=== PATIENT | male | born 1930 | race Caucasian/White ===

== ENCOUNTER 2016-12-03 17:24 | Inpatient (IN) | payer MEDICARE, BC ==
[~2016-12-03] VITALS: Ht 177.8 cm; Wt 79.1 kg
--- NOTE | ~2016-12-03 | HP ---
PATIENT'S NAME: TRINH JAIMES [facility] AGE: 86 Y [address] ROOM: [place] [address] LOCATION: GPCU ADMIT DATE: 12/03/2016 History & Physical DISCHARGE DATE: FAMILY PHYSICIAN: PHYSICIAN, UNKNOWN ATTENDING PHYSICIAN: ANTHONY OWEN DATE OF SERVICE: CHIEF COMPLAINT: NSTEMI. HISTORY OF PRESENT ILLNESS: This is an 86-year-old male with history of coronary artery disease, paroxysmal atrial fibrillation, on Coumadin, sick sinus syndrome, status post permanent pacemaker implant, hypertension, who was seen here for evaluation of chest pain. The patient reports that he woke up yesterday morning at around 6 a.m. and shortly after getting up had severe sudden onset chest pain, described as sharp with radiation to the left arm and jaw with associated nausea and diaphoresis. The patient states that the pain last for about 2 to 3 hours but subsided and did not make much of it and felt better the rest of the day. Then today, the patient reports that same symptoms recurred that is when he decided to come to the emergency room in [place], [place]. Upon evaluation, the patient was found to have elevated troponin and typical chest pain symptoms and subsequently transferred here for further workup. The patient during my evaluation today is lying in bed comfortably, chest pain free, and denies any shortness of breath, dizziness, lightheadedness, and he had been chest pain free for the past several hours. He does mention chest pain is exacerbated by exertion and relieved with rest. Denies cough, dysuria, frequency urination, fever, or chills. PAST MEDICAL HISTORY: 1. Paroxysmal atrial fibrillation. 2. Sick sinus syndrome, status post permanent pacemaker implant. 3. Hypertension. 4. History of CVA. FAMILY HISTORY: The patient does not report any history of heart disease, hypertension, diabetes, cancer in any of his family members. SOCIAL HISTORY: The patient denies any use of tobacco products, smoking, alcohol, or drug. REVIEW OF SYSTEMS: Complete review of systems was conducted covering all systems and were all PATIENT'S NAME: TRINH JAIMES [facility] AGE: 86 Y [address] ROOM: [place] [address] LOCATION: GPCU ADMIT DATE: 12/03/2016 History & Physical DISCHARGE DATE: FAMILY PHYSICIAN: PHYSICIAN, UNKNOWN ATTENDING PHYSICIAN: ANTHONY OWEN negative except as described in the HPI. PHYSICAL EXAMINATION: VITAL SIGNS: Reviewed. The patient is afebrile, and all other vital signs are stable. GENERAL: The patient is awake, alert, and oriented x3, in no acute distress. HEENT: The patient has moist mucous membranes. No scleral icterus or conjunctival pallor noted. CHEST: Clear to auscultation bilaterally. HEART: S1, S2, regular rate and rhythm. ABDOMEN: Soft, nontender, nondistended with positive bowel sounds. NEUROLOGIC: Grossly nonfocal. MUSCULOSKELETAL: No joint swelling, redness, effusion noted. SKIN: The patient has diffuse bruising on upper and lower extremities, fairly small in size. SIGNIFICANT LABORATORIES: Troponin last time checked was 2.1, creatinine 1.3. ASSESSMENT AND PLAN: 1. Non-ST elevation myocardial infarction. The patient has known coronary artery disease, last cath was in 2014, has typical presentation now, needs to be risk stratified and Dr. Cline is to evaluate him. The patient's INR is 2.3 while on Coumadin. We will hold Coumadin in anticipation of cardiac cath, however, we will just watch INR for now. The patient is chest pain free at the moment. We will trend his troponins and get a baseline EKG again as well. 2. Paroxysmal atrial fibrillation. The patient is on sotalol and Coumadin at home. He is rate controlled. INR is 2.3 today. 3. Sick sinus syndrome, status post permanent pacemaker implant. 4. Hypertension. We will continue his home medications. 5. Hyperlipidemia. We will continue his statin therapy. 6. Deep venous thrombosis, on Coumadin with therapeutic INR. MD AMI GIANG/shaylee /[id number] D: T: 430 HISTORY & PHYSICAL
--- NOTE | ~2016-12-03 | DS ---
PATIENT'S NAME: TRINH JAIMES [facility] AGE: 86 Y [address] ROOM: [address] [place], [place] [address] LOCATION: GPCU ADMIT DATE: 12/03/2016 Discharge Summary DISCHARGE DATE: 12/06/2016 FAMILY PHYSICIAN: Michael Watkins MD ATTENDING PHYSICIAN: Suni Harper PRINCIPAL DIAGNOSES: 1. Non-ST elevation myocardial infarction, status post drug-eluting stent to the RCA. 2. Coronary artery disease with occluded LAD per left heart catheterization in 1995. 3. Sick sinus syndrome, post dual-chamber pacemaker in 2013. 4. 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 5. Essential hypertension. 6. Benign prostatic hyperplasia. 7. Hypothyroidism. 8. History of shingles. 9. History of skin cancer in the face. HOSPITAL COURSE: An 86-year-old gentleman was transferred here from an outside facility with the chest pain. EKG was done, which showed paced rhythm. His enzymes were significantly elevated with the highest point was 21. He was started on nitro drip, and he was already on therapeutic oral anticoagulation. Echocardiography was done, which showed hypokinesis of the mid anterolateral, mid anterior, mid inferolateral, the base of the inferolateral, apical, lateral, apical cap segments. Ejection fraction was 45%. Mild septal left ventricular hypertrophy. Diastolic reveals grade 1 dysfunction. Mildly dilated right ventricle. Mild aortic regurgitation. He was taken to the laboratory chemical assistant by the Cardiology, and a drug- eluting stent was placed in the RCA per verbal report. He did well postprocedurally, and he was started on his all of his home medications. He was found to have some elevated AST levels and his dose of Lipitor was decreased to 10 mg on discharge. He was started on dual-antiplatelet. DISCHARGE MEDICATIONS: 1. Aspirin 81 mg p.o. every day. 2. Atorvastatin 10 mg p.o. every day. 3. Sotalol 160 mg p.o. twice daily. 4. Tamsulosin 0.4 mg p.o. every day. 5. [place] Thyroid 60 mg p.o. every day. 6. Coumadin per home dose. 7. Maxzide 75 one tablet p.o. every day. 8. Brilinta 90 mg p.o. twice daily. It was discussed with cardiology regarding beta carmel, and because of the PATIENT'S NAME: TRINH JAIMES [facility] AGE: 86 Y [address] ROOM: [id number] [place], [place] [address] LOCATION: GPCU ADMIT DATE: 12/03/2016 Discharge Summary DISCHARGE DATE: 12/06/2016 FAMILY PHYSICIAN: Michael Watkins MD ATTENDING PHYSICIAN: Suni Harper sorick did recommend to start the patient on beta carmel. He did have some GLORIA in the hospital with the creatinine level arising from 1.2 to 1.4, but postprocedurally, he was given some IV fluids and that resolved. PROGRESS NOTE ON THE DAY OF DISCHARGE SUBJECTIVE: No chest pain, no shortness of breath. He walked around in the hallway without any difficulty. OBJECTIVE: VITAL SIGNS: Blood pressure 97/63, 68, 98.0, 16. GENERAL: No acute distress. Alert and oriented x3. HEAD: Atraumatic, normocephalic. EYES: Anicteric. No pallor. CARDIOVASCULAR: S1, S2. No murmur, gallops, or rubs. LUNGS: Clear to auscultation bilaterally. ABDOMEN: Soft, nontender, and nondistended. Bowel sounds present. EXTREMITIES: No clubbing, cyanosis, or edema. LABORATORY DATA: Notable lab work included white of 11, hemoglobin of 12, platelets 156. Creatinine on discharge was 1.2, potassium of 3.6, which was replaced. Cholesterol level was 166, triglycerides 196, HDL 40, LDL of 88. ACTIVITY: As tolerated. DIET: Cardiac diet. FOLLOWUP: Follow up with Dr. Cline in 1 month and follow up with Dr. Cristina in [place] in 2 weeks. MD LAUREL MCELROY/shaylee /[id number] d: 12/07/16 0018 t: 12/28/16 1009, DISCHARGE SUMMARY
--- NOTE | ~2016-12-03 | CON ---
PATIENT'S NAME: TRINH JAIMES [facility] AGE: 86 Y [address] ROOM: [address] [address] LOCATION: [facility] ADMIT DATE: 12/03/2016 Consultation DISCHARGE DATE: FAMILY PHYSICIAN: Michael Watkins MD ATTENDING PHYSICIAN: ANTHONY HARPER DATE OF CONSULTATION: 12/04/2016 REFERRING PHYSICIAN: Tami Arredondo MD CARDIOLOGY CONSULTATION REFERRING PHYSICIAN: Anthony Harper MD FAMILY PHYSICIAN: Tiburcio Wood MD HISTORY OF PRESENT ILLNESS: This is an 86-year-old gentleman well known to Dr. Arredondo with a history of coronary artery disease. He is now being admitted with complaints of chest pain as well as elevated cardiac enzymes. He woke on 12/03/2016 with a severe onset of chest discomfort, described as a sharp pain radiating to his left arm and jaw that was associated with nausea and diaphoresis. The pain lasted about 2 to 3 hours and then he disrested and it went away. He stated the symptoms returned the following day or day of admission, so he went to the [facility]. Upon evaluation, he was found to have an elevated troponin. Therefore, he was transferred to [facility] for further evaluation. Prior to this, he was in his usual state of health and was not experiencing any exertional chest heaviness or tightness. He does carry a history of an occluded LAD that was noted on a heart catheterization in 1995. He has chosen chelation therapy since then but had subsequently stopped doing the chelation for the past year or so. In 2014, he had suffered bilateral pulmonary embolism and had a Green filter placed and has been short of breath, since he had the pulmonary embolism. He is currently on warfarin therapy both for his DVTs as well as a history of paroxysmal atrial fibrillation. PAST MEDICAL HISTORY: 1. Coronary artery disease with occluded LAD per left heart catheterization, 09/22/1995. 2. Sick sinus syndrome, post dual-chamber pacemaker, 2013. 3. History of bilateral pulmonary embolism with IVC placement in 2014. 4. Essential hypertension. 5. BPH. 6. Hypothyroidism. 7. History of shingles. PATIENT'S NAME: TRINH JAIMES [facility] AGE: 86 Y [address] ROOM: [id number] [place], [place] [address] LOCATION: GPCU ADMIT DATE: 12/03/2016 Consultation DISCHARGE DATE: FAMILY PHYSICIAN: Michael Watkins MD ATTENDING PHYSICIAN: ANTHONY HARPER 8. History of skin cancers on his face. PAST SURGICAL HISTORY: 1. He is post tonsillectomy and adenoidectomy. 2. Cholecystectomy. 3. Right and left heart catheterization on 09/22/1995 with attempted PTCI to the LAD, that was failed in [place], [place]. 4. Dual-chamber pacemaker placement on 03/13/2014. 5. IVC filter placement on 10/04/2014. ALLERGIES: NONE TO MEDICATION. HOME MEDICATIONS: 1. Ascorbic acid 500 mg every day. 2. Sotalol 160 mg b.i.d. 3. Tamsulosin 0.4 mg every day. 4. [place] Thyroid 60 mg every day. 5. Maxzide 75, 1 tablet daily. 6. Warfarin 3 mg 2 days a week and 4 mg 5 days a week. FAMILY HISTORY: His father was struck by lightening and had multiple health problems after that. His mother lived to be older age, of heart failure symptoms. SOCIAL HISTORY: He is . He has two daughters. He has never smoked. He does not use alcohol. REVIEW OF SYSTEMS: GENERAL: He denies any fevers, chills, or sweats. HEENT: Head; no history of headaches. Eyes; no blurred vision or double vision. He does wear corrective lenses. Ears; he has hearing aid in the left ear. Nose; no epistaxis or rhinorrhea. Mouth; no gingival bleeding. Throat; denies difficulty with swallowing. PULMONARY: Denies cough or hemoptysis. He does complain of shortness of breath with activity. He has a history of pulmonary embolism. GASTROINTESTINAL: Negative for nausea, vomiting, or diarrhea. No melena or hematochezia. GENITOURINARY: Positive for urgency and nocturia 2 to 3 times at night. He does have a history of BPH. MUSCULOSKELETAL: He complains of generalized arthritis. NEUROLOGIC: Denies TIA or CVA symptomatology. PSYCHIATRIC: No problems with anxiety or depression. PATIENT'S NAME: TRINH JAIMES [facility] AGE: 86 Y [address] ROOM: [id number] [place], [place] [address] [facility] ADMIT DATE: 12/03/2016 Consultation DISCHARGE DATE: FAMILY PHYSICIAN: Michael Watkins MD ATTENDING PHYSICIAN: ANTHONY HARPER PHYSICAL EXAMINATION: VITAL SIGNS: He is 5 feet 10 inches. He weighs 169 pounds. Blood pressure is 124/78, heart rate 66, and respirations are 20. He is afebrile. SKIN: Warm, dry, and pink. GENERAL: He is very cheerful. HEENT: Pupils are equal. NECK: Soft and supple. No lymphadenopathy or thyromegaly. JVD is flat. RESPIRATORY: Lung sounds are clear without evidence of wheezes, rales, or rhonchi. CARDIOVASCULAR: Regular with a normal S1 and S2 with occasional paced beats noted. ABDOMEN: Soft. Bowel sounds are present. EXTREMITIES: No peripheral edema. No clubbing. No cyanosis. Distal pulses are 2+/4. NEUROLOGIC: Cranial nerves 2 through 12 are grossly intact. His gait was not assessed. PSYCHIATRIC: His mood is pleasant and calm. LABORATORY DATA AND IMAGING STUDIES: Cardiac enzymes, troponin I is 16.9 to 21.1; CPK was 352 to 335 to 305. His hemoglobin was 14.5, hematocrit was 43.0, white count was 12.0, and platelets are 191,000. Glucose was 90, BUN 27, creatinine 1.2, sodium 139, potassium 3.8, and magnesium was 2.0. Cholesterol was 260, triglycerides 386, HDL 47, and LDL was 136. His INR at admission was 2.3. UA was normal. ASSESSMENT: 1. [id number]-[id number] myocardial infarction. His EKG is not showing any new changes, but his enzymes are elevated. He is currently on warfarin and it is on hold. We will check an echocardiogram today and catheterization in the morning, once his INR is less than 1.5. The risks and benefits of a left heart catheterization have been explained by Dr. Arredondo. The patient is in agreement and willing to proceed with that catheterization. 2. Hypokalemia. We will replace his potassium with 30 mEq p.o. today. 3. Paroxysmal atrial fibrillation. He remained in a regular sinus rhythm. He will continue with his sotalol therapy. We are holding warfarin at this time. 4. History of pulmonary embolism. He is post Green filter placement. 5. Essential hypertension. He will continue with his home medications. 6. Dyslipidemia. He has not wanted to start statins in the past, but currently we will add a statin therapy. The Assessment and Plan, History of Present Illness, and Physical Examination are per Dr. Tami Arredondo. We would like to thank Dr. Harper and Dr. Wood for allowing us to participate in this patient's care. PATIENT'S NAME: TRINH JAIMES [facility] AGE: 86 Y [address] ROOM: [id number] [place] [id number] LOCATION: [facility] ADMIT DATE: 12/03/2016 Consultation DISCHARGE DATE: FAMILY PHYSICIAN: Michael Watkins MD ATTENDING PHYSICIAN: ANTHONY HARPER ED GIL APRN FOR TAMI ARREDONDO MD TGP/modl /[id number] d: 12/05/161835 t: 12/10/16 1654, CONSULTATION REPORT
--- NOTE | ~2016-12-03 | CATH ---
Cardiac Diagnostic + PCI Report Demographics Patient Name THEODORE Lyons Gender Male Date of 1930 Age 86 year(s) Patient Number [id number] Date of Study 12/05/2016 Visit Number [id number] Room Number [address] [place] [id number] Ht 177.8 cm Wt 76.66 kg Referring Roland Popejayce Caba Primary Physician Physician Performing Marlyn Watt MD Secondary Physician Physician Diagnostic Marlyn Watt MD Assisting Physician Physician Interventional Mralyn Watt MD Physician Quilter Fixer Physician Findings and Conclusions Diagnostic Findings and Conclusion 2 vessel CAD. High grade RCA supply collaterals to LAD. Diagnostic Recommendations PCI RCA. Interventional Findings and Conclusion 0.014 Prowater. 3.25 x 15 Emerge. 3.5 x 16 Rebel to 3.6. Interventional Recommendations DAPT x 1 month. Routine post angioseal. Procedure Description The patient was brought to the diagnostic cardiac catheterization-EP laboratory in the fasting, non-sedated state. Informed consent was obtained in the written and verbal form after the risks and benefits were explained. The patient had no further questions and agreed to proceed. The planned puncture-incision site(s) were shaved and prepped with ChloraPrep and draped in the usual sterile manner. Conscious sedation, supplemental oxygen, and pain control medications were delivered by a registered nurse under physician guidance. Surface ECG rhythm, blood pressure measurement, and pulse oximetry were monitored throughout the procedure. Arterial access. The access site was infiltrated with lidocaine. The vessel was entered with the Seldinger technique. A sheath was advanced into the vessel and used for catheter placement. Selective left coronary angiography. A catheter was advanced into the left coronary vessel ostium under Fluoroscopic guidance. Contrast was injected by hand. Images were obtained in multiple projections. Selective right coronary angiography. A catheter was advanced into the right coronary vessel ostium under fluoroscopic guidance. Contrast was injected by hand. Images were obtained in multiple projections. Left heart catheterization. A catheter was advanced across the aortic valve to the left ventricle under fluoroscopic guidance. Resting hemodynamics were obtained. Angioplasty and Stent Placement: A guiding catheter was used to intubate the vessel. A 0.14 wire was then used to cross the lesion. A balloon catheter was placed across the lesion and inflated. The balloon catheter was then removed. A Bare Metal Stent was placed and inflated. Post placement angiograms were performed. Arterial artery hemostasis was achieved. The patient was transferred to a regular nursing floor via cart accompanied by a nurse. The patient left the laboratory in stable condition. Diagnostic Cath Status: Urgent Interventional Cath Status: Urgent Procedure Procedure Type Diagnostic procedure:Angiography:, Coronary Angios /[facility] PCI procedure:Bare Metal Coronary Stent:, RCA Indications: Non-ST elevation VT. The procedure was explained in detail to the patient. Risks, complications and alternative treatments were reviewed. Written consent was obtained. Medications Reviewed with Patient prior to Procedure. Angiographic Findings Dominance: Right Cardiac Arteries and Lesion Findings LMCA: Normal (0% Stenosis).Medium, okay. LAD: Diagonal 1 small, okay. Lesion on Mid LAD: 100% stenosis . LCx: Large, non-dominant. OM 1 small, AV groove small. Lesion on 1st Ob Renee: Ostial.85% stenosis . RCA: Large, dominant. Collaterals to LAD. PL medium, okay. PDA medium, okay. Lesion on Prox RCA: Proximal subsection.85% stenosis reduced to 0%. Pre procedure JULIO CESAR III flow was noted. Post Procedure JULIO CESAR III flow was present. The guidewire cross was successful.The lesion was diagnosed as a high risk lesion.Culprit lesion. Treatment results:Interventional treatment was successful. Devices used - Prowater Wire .014 x 180. Number of passes: 1. - Emerge Balloon 3.25 x 15. 1 inflation(s) to a max pressure of: 10 [place]ison. - 3.5 x 16 Rebel Stent. 2 inflation(s) to a max pressure of: 12 [place]. Coronary Tree Procedure Data Procedure Date Date: 12/05/2016Start: 09:11 AMEnd: 10:04 AM Entry Locations - Retrograde Percutaneous access was performed through the Right Femoral artery (Primary location). A 6 Fr sheath was inserted. Hemostasis was successfully obtained using Angio-Seal STS PLUS ([place]. [place]). Closure Comments: Deployed by RT. Reza. Procedure Medications Order and Administration + + + + + !Time !Medication !Dosage !Route ! + + + + + !12/05/2016 09:07 !Versed !1 mg !I.V. ! !AM ! ! ! ! + + + + + !12/05/2016 09:10 !Fentanyl !25 mcg !I.V. ! !AM ! ! ! ! + + + + + !12/05/2016 09:16 !Oxygen !2 l/min !NC ! !AM ! ! ! ! + + + + + !12/05/2016 09:24 !Angiomax (Bivalirudin) !55 mg !I.V. bolus ! !AM !(ACC_5) ! ! ! + + + + + !12/05/2016 09:27 !Angiomax (Bivalirudin) !1.75 mg/kg/hr!I.V. drip ! !AM !(ACC_5) ! ! ! + + + + + !12/05/2016 09:44 !Jhonatan-Synephrine !50 mcg !I.V. ! !AM !(Phenylephrine) ! ! ! + + + + + !12/05/2016 09:45 !Nipride !50 mcg !I.C. ! !AM ! ! ! ! + + + + + !12/05/2016 09:46 !0.9% NaCl !250 ml !I.V. bolus ! !AM ! ! ! ! + + + + + !12/05/2016 09:46 !Brilinta (Ticagrelor) !180 mg !P.O. ! !AM !(ACC_20) ! ! ! + + + + + !12/05/2016 09:47 !Angiomax (Bivalirudin) ! !I.V. drip ! !AM !(ACC_5) ! ! ! + + + + + Devices Used - A6 Fr. BS JL 4 Diag. Catheterwas used for:Left coronary angiography. - A6 Fr. BS JR 4 Diag. Catheterwas used for:Right coronary angiography. - A6 Fr. BS Angled Pigtail Diag. Catheterwas used for:LV Pressures. - A6 Fr. JR4 SH Guide Catheterwas used for:RCA Intervention. Contrast Material - Isovue [id number] ml Fluoroscopy Time: Diagnostic: 11:42 minutes. Total: 11:42 minutes. Fluoroscopy Dose: Diagnostic: 2058 mGy. Total: 2058 mGy. Estimated Blood Loss: 5 ml. Additional [facility] PCI Information PCI Indication:PCI for high risk Non-STEMI or unstable angina. Medical History Performed Procedures and Imaging Results - No [facility] stress or imaging studies were performed. Allergies - No known allergies. Risk Factors The patient risk factors include:cerebrovascular disease, hypertension, last creatinine: 1.4 mg/dl, creatinine clearance: 41.83 ml/min and dyslipidemia. Admission Data Admission Date: 12/03/2016 Admission Time: 05:24 PM Admit Source: [facility] facility Insurance Payors: Medicare. Admission Medications + +------+------+ + + + + !Medication !Dosage!Times !Last !Last !Administered !Comments ! ! ! !Per !Delivery !Delivery ! ! ! ! ! !Day !Date !Time ! ! ! + +------+------+ + + + + !Nitrates (iv! ! ! ! !Yes ! ! !or buccal) ! ! ! ! ! ! ! + +------+------+ + + + + !Aspirin ! ! ! ! !Yes ! ! !(any) ! ! ! ! ! ! ! + +------+------+ + + + + !Statin (any)! ! ! ! !Yes ! ! + +------+------+ + + + + !Beta [place]! ! ! ! !Yes ! ! !(any) ! ! ! ! ! ! ! + +------+------+ + + + + Clinical Evaluation Leading to Procedure - The patient's CAD presentation was assessed as: Non-STEMI. - The patient's anginal syndrome during the past two weeks was assessed as: Class IV according to the Major Cardiovascular Society Classification System (CCS). Anti-anginal medications were prescribed during the past two weeks. The medication is: Beta Blockers. Hemodynamics Condition: Rest O2 Consumption: Estimated: 216.77Heart Rate: 65 bpm Pressures (mmHg) +-----+ + !Site !Pressure ! +-----+ + !AO !95/55 (70) ! +-----+ + !AO !97/58 (76) ! +-----+ + !LV !94/8 ,17 ! +-----+ + !LV !105/6 ,24 ! +-----+ + !AO !102/59 (77) ! +-----+ + !LV !104/6 ,22 ! +-----+ + !AO !101/58 (76) ! +-----+ + !AO !99/53 (71) ! +-----+ + Valve Gradients and Areas + +---------+---------+---------+ +---------+ + !Valve !Peak !Mean !Area !Index !Flow !Source ! + +---------+---------+---------+ +---------+ + !Aortic !3 !0 ! ! ! ! ! + +---------+---------+---------+ +---------+ + !Aortic !3 !0 ! ! ! ! ! + +---------+---------+---------+ +---------+ + Shunts Oxygen Values O2 Capacity 179.52 O2 Consumption 216.77 Discharge Data Discharge Date: 12/06/2016 Hospital Status: Inpatient Signatures dtt: Shukri Cline (cardio) dtd: 12/05/16 0911 Physician Self Edit
--- NOTE | ~2016-12-03 | ECHO ---
Transthoracic Echocardiography Report (TTE) Demographics Patient Name TRINH JAIMES Date of Study 12/04/2016 Patient Number [id number] Visit Number [id number] Date of 1930 Room Number G6336 Accession Number [id number] Gender Male Age 86 year(s) Referring Marlyn Watt MD Chief Service Dispatcher Harlan Magana Physician RDCS, RVT Physician Interpreting Marlyn Watt MD Organ Pipe Finisher Physician Supervising Ordering Physician Marlyn Watt MD, MD/MLP Nurse Stress Box Printer Conclusions Contractility Score Summary At rest the following contractility abnormalities were noted: Hypokinesis of the Mid henry-lateral, the Mid anterior, the Mid infero-lateral, the Basal infero-lateral, the Apical lateral, the Basal anterior, the Basal henry-lateral and the Apical cap segments; Akinesis of the Mid henry-septal, the Mid infero-septal, the Mid inferior, the Apical inferior, the Apical septal, the Basal henry-septal, the Basal infero-septal, the Apical anterior and the Basal inferior segments. Summary The estimated left ventricular ejection fraction is 45%. Mild septal left ventricular hypertrophy. Diastolic assessment reveals Grade I diastolic dysfunction. Mildly dilated right ventricle. There is mild aortic regurgitation by color Doppler. The aortic valve is moderately sclerotic. There is mild pulmonary hypertension. The pulmonary pressure (RVSP) is 35.67 mmHg. The aortic root appears mildly dilated. The maximum diameter measures 4 cm. The ascending aorta appears mildly dilated. The maximum diameter measures 3.9 cm. Procedure Type of Study TTE procedure:2D Echocardiogram. Procedure Date Date: 12/04/2016 Start: 09:44 AM Study Location: Inpatient Portable Technical Quality: Adequate visualization Indications:Myocardial infarction. Appropriate Use Criteria: 9 Patient Status: Routine HR: 60 bpm BP: 107/68 mmHg Allergies - No known allergies. M-Mode/2D Measurements LV Diastolic Dimension: 5.33 cm LV Systolic Dimension: 5.4 cm LV Septum Diastolic: 1.08 cm LV PW Diastolic: 0.81 cm AO Root Dimension: 4 cm Cardiac Output: 2.61 l/min AV Cusp Separation: 1.6 cm RV Diastolic Dimension: 4.14 cm LA volume: 61 ml LVOT: 1.8 cm RV Base: 4.12 cm LVOT VTI: 17.1 cm RV Mid: 2.72 cm LV Stroke volume: 43.49 ml TAPSE: 1.74 cm TDI-S': 11.6 cm/s Doppler Measurements AV Peak Velocity: 1.75 m/s MV Peak E-Wave: 0.37 m/s AV Peak Gradient: 12.25 mmHg MV Peak A-Wave: 0.97 m/s AV Mean Gradient: 8 mmHg MV E/A Ratio: 0.38 LVOT Peak Velocity: 0.78 m/s MV P1/2t: 120 msec AV P1/2t: 884 msec TR Gradient:27.67 mmHg PV Peak Velocity: 0.6 m/s Estimated RAP:8 mmHg PV Peak Gradient: 1.44 mmHg Estimated RVSP: 36 mmHg Estimated PASP: 35.67 mmHg Findings Left Ventricle Mild septal left ventricular hypertrophy. Diastolic assessment reveals Grade I diastolic dysfunction. Right Ventricle Mildly dilated right ventricle. Device lead noted in the right ventricle. Left Atrium The left atrium is moderately dilated. Right Atrium The right atrium is mildly dilated. Device lead seen in the right atrium. Mitral Valve Moderate mitral regurgitation by color Doppler. Mild calcification of the mitral valve. Aortic Valve There is mild aortic regurgitation by color Doppler. The aortic valve is moderately sclerotic. Tricuspid Valve Mild tricuspid regurgitation by color Doppler. There is mild pulmonary hypertension. The pulmonary pressure (RVSP) is 35.67 mmHg. Pulmonic Valve Mild-moderate pulmonic valve regurgitation by color Doppler. Pericardial Effusion No evidence of pericardial effusion. Miscellaneous The aortic root appears mildly dilated. The maximum diameter measures 4 cm. The ascending aorta appears mildly dilated. The maximum diameter measures 3.9 cm. Pleural Effusion No evidence of pleural effusion. Contractility Score LV regional wall motion:(0-Non visualized 1-Normal 2-Hypokinesis 3-Akinesis 4-Dyskinesis 5-Aneurysm) Signature dtt: Shukri Cline (cardio) dtd: 12/04/16 0944 Physician Self Edit
--- NOTE | 2016-12-03 17:51 | NUR ---
Significant Event: pt [facility] by [facility], saw dr esparza this am. Pt had cp yesterday,. had loose bm also. Pt lives with . Pacemaker. No c/o chestpain. Enzymes cardiac elevated. INR 2.3 on coumadin. pt is alert/orientedx3 and alittle hard of hearing. Follow up:
[2016-12-03] MEDS ORDERED: FLOMAX0.4 MG PO (18:00)
[2016-12-03] MEDS ORDERED: SOTALOL160 MG PO (18:00)
[2016-12-03] MEDS ORDERED: MAXZIDE-751 TAB PO (18:01)
--- NOTE | 2016-12-03 18:04 | NUR ---
Pt is 86 y/o male admit for chest pain for hospitalist. Pt alert and oriented x3. [facility] [place]. wears left hearing aid and glasses. CAme via ambulance from [place], [place]. Hx htn,afib,SSS,CAD,pacemaker,sleep apnea-CPAP,PE,DVT,tari filter,hypothyroid. On Coumadin therapy. Resides at home with his . Pt reports he started having chest pain last night and was nauseated. Had chest pain again this am which radiated to left side. He was already scheduled to see Dr.DJ Cline at his [facility]. Pt has not had any pain since this am. No allergies.
[2016-12-03] MEDS ORDERED: COUMADIN ** 9/62 MG PO ×2 (18:06→18:07)
[2016-12-03] MEDS ORDERED: ARMOUR THYROID60 MG PO (18:08)
[2016-12-03] MEDS ORDERED: ASCORBIC ACID500 MG PO (18:09)
[2016-12-03 19:09] LABS: BASOPHIL % 0.3 %; EOSINOPHIL # 0.2 K/uL (0.0-0.5); EOSINOPHIL % 1.6 %; HEMOGLOBIN 14.5 g/dL (11.0-16.0); IMMATURE GRANULOCYTE # 0.1 K/uL (0.0-0.3); IMMATURE GRANULOCYTE % 0.5 %; LYMPHOCYTE # 3.9 K/uL (0.8-4.0); LYMPHOCYTE % 32.2 %; MCH 29.8 pg (27.0-34.0); MCHC 33.7 gm/dL (32.0-36.5); MCV 88.5 fl (83.0-98.0); MONOCYTE # 0.8 K/uL (0.0-1.0); MONOCYTE % 6.7 %; MPV 10.1 fl (9.4-12.4); NEUTROPHIL % 58.7 %; NRBC % 0 /100WBC (0-0.00); PLATELET COUNT 191 K/uL (150-450); RBC 4.86 M/uL (3.50-5.50); RDW-CV 14.5 % (11.9-14.6)
[2016-12-03 19:18] LABS: INR - (THERAPEUTIC) 2.34 (0.92-1.07); PROTIME 24.8 SECONDS (9.8-11.4)
[2016-12-03 19:27] LABS: ALBUMIN 3.6 gm/dL (3.5-5.0); ANION GAP 10.8 (10.0-19.0); CALCIUM 9.4 mg/dL (8.5-10.5); CREATININE 1.2 mg/dL (0.6-1.3); POTASSIUM 3.8 mMol/L (3.7-5.1); TOTAL BILIRUBIN 0.7 mg/dL (0.0-1.5); TOTAL PROTEIN 7.2 g/dL (6.0-8.4)
--- NOTE | 2016-12-04 05:22 | NUR ---
Signficant events: Pt A/Ox3. VSS, SBP 90-120's, on RA. No complaints of chest pain. Nitro gtt currently off for SBP in 90's. Up 1PA. Voids per urinal. NPO since midnight, Marlyn to see this AM to decide plan for today. Slept well.
[2016-12-04 06:59] LABS: BASOPHIL # 0.1 K/uL (0.0-0.2); BASOPHIL % 0.7 %; EOSINOPHIL # 0.2 K/uL (0.0-0.5); HEMATOCRIT 39.6 % (33.0-50.0); HEMOGLOBIN 13.5 g/dL (11.0-16.0); IMMATURE GRANULOCYTE # 0.1 K/uL (0.0-0.3); IMMATURE GRANULOCYTE % 0.5 %; LYMPHOCYTE # 3.4 K/uL (0.8-4.0); LYMPHOCYTE % 32.3 %; MCH 29.9 pg (27.0-34.0); MCHC 34.1 gm/dL (32.0-36.5); MCV 87.6 fl (83.0-98.0); MONOCYTE # 0.9 K/uL (0.0-1.0); MONOCYTE % 8.1 %; MPV 9.8 fl (9.4-12.4); NEUTROPHIL % 56.4 %; NRBC % 0 /100WBC (0-0.00); PLATELET COUNT 165 K/uL (150-450); RBC 4.52 M/uL (3.50-5.50); RDW-CV 14.4 % (11.9-14.6); WBC 10.6 K/uL (4.0-11.0)
[2016-12-04 07:06] LABS: INR - (THERAPEUTIC) 2.13 (0.92-1.07); PROTIME 22.5 SECONDS (9.8-11.4)
[2016-12-04 07:41] LABS: ALBUMIN 3.1 gm/dL (3.5-5.0); ANION GAP 15.6 (10.0-19.0); CALCIUM 8.9 mg/dL (8.5-10.5); CREATININE 1.2 mg/dL (0.6-1.3); POTASSIUM 3.6 mMol/L (3.7-5.1); TOTAL BILIRUBIN 0.7 mg/dL (0.0-1.5); TOTAL PROTEIN 6.3 g/dL (6.0-8.4)
--- NOTE | 2016-12-04 15:00 | NUR ---
Introduced self and role of care management to patient. [place] . He says he is having a heart cath tomorrow and hopes to go home after that. Active and independent at home. Talks about his garden. Denies discharge needs at this time. Will follow.
[2016-12-04 17:29] LABS: INR - (THERAPEUTIC) 2.01 (0.92-1.07)
[2016-12-04 17:32] LABS: PROTIME 21.3 SECONDS (9.8-11.4)
--- NOTE | 2016-12-04 18:39 | NUR ---
PATIENTS INR 2.01 IS GOING TO GET VITAMIN K. RECHECK INR IN AM AT 0600. PLAN TO DO A HEART CATH TOMORROW IF INR DECREASES.
--- NOTE | 2016-12-05 04:31 | NUR ---
Significant events: Pt A/Ox3. VSS, SBP 90-110's. On RA. Up SBA. No complaints of chest pain or shortness of breath. NPO after midnight for possible heart cath today. Slept well, cooperative with cares.
[2016-12-05 06:20] LABS: BASOPHIL # 0.1 K/uL (0.0-0.2); BASOPHIL % 0.5 %; EOSINOPHIL # 0.2 K/uL (0.0-0.5); EOSINOPHIL % 1.3 %; HEMATOCRIT 38.8 % (33.0-50.0); HEMOGLOBIN 13.2 g/dL (11.0-16.0); IMMATURE GRANULOCYTE % 0.3 %; LYMPHOCYTE # 3.8 K/uL (0.8-4.0); LYMPHOCYTE % 31.1 %; MCH 30.1 pg (27.0-34.0); MCV 88.4 fl (83.0-98.0); MONOCYTE % 7.9 %; MPV 10.3 fl (9.4-12.4); NEUTROPHIL # (ANC) 7.1 K/uL (1.4-9.0); NEUTROPHIL % 58.9 %; NRBC % 0 /100WBC (0-0.00); PLATELET COUNT 168 K/uL (150-450); RBC 4.39 M/uL (3.50-5.50); RDW-CV 14.2 % (11.9-14.6); WBC 12.1 K/uL (4.0-11.0)
[2016-12-05 06:28] LABS: INR - (THERAPEUTIC) 1.33 (0.92-1.07)
[2016-12-05 06:33] LABS: ALBUMIN 3.2 gm/dL (3.5-5.0); ANION GAP 14.8 (10.0-19.0); CALCIUM 8.7 mg/dL (8.5-10.5); CREATININE 1.4 mg/dL (0.6-1.3); MAGNESIUM 1.9 mg/dL (1.8-2.6); POTASSIUM 3.8 mMol/L (3.7-5.1); TOTAL PROTEIN 6.6 g/dL (6.0-8.4)
--- NOTE | 2016-12-05 11:26 | NUR ---
D:Patient left for cath per bed at 0840. Returned to room at 1010. Has dressing to right groin that is soft, dry and intact. Has 1/2 NS infusing at 75 ml/hr. No c/o pain. Family at bedside. P:Monitor post cath
[2016-12-05 14:59] LABS: BILIRUBIN URINE NEGATIVE (NEGATIVE); BLOOD URINE NEGATIVE /UL (NEGATIVE); COLOR URINE YELLOW (YELLOW); GLUCOSE URINE NEGATIVE (NEGATIVE); KETONE URINE NEGATIVE (NEGATIVE); LEUKOCYTES URINE 25 /UL (NEGATIVE); NITRITE URINE NEGATIVE (NEGATIVE); PROTEIN URINE NEGATIVE (NEGATIVE); SPEC GRAVITY URINE 1.005 (1.003-1.035); UROBILINOGEN URINE NORMAL (NORMAL)
[2016-12-05 15:08] LABS: TURBIDITY URINE CLEAR (CLEAR)
[2016-12-05 15:10] LABS: BACTERIA URINE NEGATIVE (NEGATIVE); EPITHELIAL URINE 0-2 #/HPF (NEGATIVE); RBC URINE RARE #/HPF (NEGATIVE)
--- NOTE | 2016-12-05 17:56 | NUR ---
Significant Event:Patient had heart cath today. Right groin is soft, no drainage. Had stent to RCA. Has been up the bathroom. at bedside. No c/o pain. UA sent to lab. Follow up:Monitor post cath, possibly home tomorrow
--- NOTE | 2016-12-06 03:47 | NUR ---
Significant Event:pt alert and oriented x4. pleasant with staff and cares, hard of hearing at times. vss slightly hypotensive during night, denies pain when asked. lung sounds clear on room air, bowel sounds active x4 quadrants. up to bathroom, also uses urinal at night. denies pian when asked. right groin site clear/dry/intact. soft, no bleeding noted to dressing. takes medication whole no complications noted. uses call light approp. Follow up:plan is to discharge to home with today.
[2016-12-06 03:53] LABS: BASOPHIL % 0.3 %; EOSINOPHIL # 0.2 K/uL (0.0-0.5); EOSINOPHIL % 1.6 %; HEMATOCRIT 36.9 % (33.0-50.0); HEMOGLOBIN 12.5 g/dL (11.0-16.0); IMMATURE GRANULOCYTE # 0.1 K/uL (0.0-0.3); IMMATURE GRANULOCYTE % 0.5 %; LYMPHOCYTE # 3.9 K/uL (0.8-4.0); LYMPHOCYTE % 34.5 %; MCH 29.9 pg (27.0-34.0); MCHC 33.9 gm/dL (32.0-36.5); MCV 88.3 fl (83.0-98.0); MONOCYTE % 8.5 %; MPV 10.5 fl (9.4-12.4); NEUTROPHIL # (ANC) 6.2 K/uL (1.4-9.0); NEUTROPHIL % 54.6 %; NRBC % 0 /100WBC (0-0.00); PLATELET COUNT 156 K/uL (150-450); RBC 4.18 M/uL (3.50-5.50); RDW-CV 14.3 % (11.9-14.6); WBC 11.4 K/uL (4.0-11.0)
[2016-12-06 04:01] LABS: INR - (THERAPEUTIC) 1.14 (0.92-1.07)
[2016-12-06 04:12] LABS: ANION GAP 11.3 (10.0-19.0); CALCIUM 8.4 mg/dL (8.5-10.5); CREATININE 1.2 mg/dL (0.6-1.3); MAGNESIUM 1.8 mg/dL (1.8-2.6); POTASSIUM 3.3 mMol/L (3.7-5.1); TOTAL BILIRUBIN 0.9 mg/dL (0.0-1.5)
[2016-12-06] MEDS ORDERED: ASPIRIN (CHILDR81 MG PO (10:47)
[2016-12-06] MEDS ORDERED: BRILINTA90 MG PO (10:51)
[2016-12-06] MEDS ORDERED: LIPITOR10 MG PO (10:55)
--- NOTE | 2016-12-06 13:19 | NUR ---
D:Patient up in [place] with twice, tolerated well. No c/o chest pain or SOB. Right groin remains soft, no bleeding or swelling. Dressing to groin changed to bandaid. IV's dc'd and off monitor. Recieved extra 60 mEq KCl. Discharged to to return home. [place] understanding of instructions including follow up and medications. Released per wheelchair at 1140.
== END 2016-12-06 11:40 | disposition disaster alternative care site (69) | DRG 249 ==
LOC: GPCU 17:24
PROVIDERS: Internal Medicine Interventional Cardiology; ADMIT Internal Medicine
PROC: 02703DZ Dilation of Coronary Artery, One Artery with Intraluminal Device, Percutaneous Approach (ICD-10-PCS; principal; 2016-12-05)
PROC: B2111ZZ Fluoroscopy of Multiple Coronary Arteries using Low Osmolar Contrast (ICD-10-PCS; principal; 2016-12-05)
PROC: 4A023N7 Measurement of Cardiac Sampling and Pressure, Left Heart, Percutaneous Approach (ICD-10-PCS; principal; 2016-12-05)
PROC: B2151ZZ Fluoroscopy of Left Heart using Low Osmolar Contrast (ICD-10-PCS; principal; 2016-12-05)
DX: I21.4 Non-ST elevation (NSTEMI) myocardial infarction (principal); I49.5 Sick sinus syndrome; I48.0 Paroxysmal atrial fibrillation; I25.10 Atherosclerotic heart disease of native coronary artery without angina pectoris; I10 Essential (primary) hypertension; E78.5 Hyperlipidemia, unspecified; N40.0 Benign prostatic hyperplasia without lower urinary tract symptoms; E87.6 Hypokalemia; Z90.49 Acquired absence of other specified parts of digestive tract; Z95.810 Presence of automatic (implantable) cardiac defibrillator; Z85.828 Personal history of other malignant neoplasm of skin; Z86.73 Personal history of transient ischemic attack (TIA), and cerebral infarction without residual deficits; Z86.711 Personal history of pulmonary embolism; Z79.01 Long term (current) use of anticoagulants; I35.1 Nonrheumatic aortic (valve) insufficiency
CPT/HCPCS: C1725; C1760; C1769; C1876; C1887; C9600; J0583; J1644; J2250; J2370; J3010; J7050; J7060; J7120